=== PATIENT | female | born 1940 | race Caucasian/White ===

== ENCOUNTER 2017-10-11 16:40 | Emergency (ER) | payer OTHER ==
[~2017-10-11] VITALS: Ht 160 cm; Wt 54.4 kg
[2017-10-11 16:54] VITALS: BP_SYST 136
[2017-10-11] MEDS ORDERED: TETRACAINE HCL 0.5% OPHTHALMIC DROPS 15 ML OP ONE (17:00)
[2017-10-11 17:32] VITALS: BP_SYST 136
== END 2017-10-11 17:29 | disposition home or self-care (01) ==
LOC: SED 16:40
DX: H10.212 Acute toxic conjunctivitis, left eye (principal); F32.9 Major depressive disorder, single episode, unspecified; R03.0 Elevated blood-pressure reading, without diagnosis of hypertension; Z88.8 Allergy status to other drugs, medicaments and biological substances
CPT/HCPCS: 99283